=== PATIENT | female | born 1980 | race Two or more races ===

== ENCOUNTER → 2025-04-23 | Outpatient (CLI) | payer OTHER, SELFPAY ==
--- NOTE | 2025-04-23 09:15 | XR_ITS ---
Examination: Screening digital mammography, bilateral Computer aided detection 3-D breast Tomosynthesis, bilateral Date and time of exam: April 23, 2025 0844 hours Compared to mammograms dating to November 12, 2022 Indication: Screening Technique: Nonmagnified MLO, CC views of the breasts to been obtained, reconstructed from 3-D Tomosynthesis images. R2 computer aided detection program utilized for evaluation of suspicious masses and/or abnormal calcifications. 3-D Tomosynthesis images obtained. Findings: The breasts are heterogeneously dense, which may obscure small masses Interval 8 mm focus architectural distortion inner right breast CC view, 4.4 cm from the nipple Impression: BI-RADS Category 0: Incomplete: Need additional imaging evaluation Recommend follow-up spot tomographic views of 8 mm focus architectural distortion inner right breast CC view as well as spot compression right MLO view upper right breast and right breast sonography to complete the workup.
== END | disposition home or self-care (01) ==
LOC: CDIM 08:36
PROVIDERS: Referring Provider Nurse Practitioner Family; Visit Provider Nurse Practitioner Family
DX: Z12.31 Encounter for screening mammogram for malignant neoplasm of breast (principal); R92.8 Other abnormal and inconclusive findings on diagnostic imaging of breast
CPT/HCPCS: 77063; 77067

== ENCOUNTER → 2025-05-29 | Outpatient (CLI) | payer OTHER, SELFPAY ==
--- NOTE | 2025-05-29 09:00 | XR_ITS ---
Examination: Breast ultrasound complete, bilateral Date and time of exam: May 29, 2025 0914 hours Comparison February 03, 2024 INDICATIONS: Mammogram May 05, 2025 8mm architectural distortion inner right breast, strong family history breast cancer, sister Technique: Real-time grayscale ultrasonographic imaging bilateral breasts, including all 4 quadrants as well as nipple retroareolar and axillary regions. Findings: Sonographic images right breast 2:00 cyst 3 x 4 mm Retroareolar cyst 7 x 7 mm No solid nodules Sonographic images left breast No cystic or solid mass IMPRESSION: BI-RADS Category 2: Benign findings
--- NOTE | 2025-05-29 09:36 | XR_ITS ---
Examination: Diagnostic digital mammography, unilateral, right Computer aided detection 3-D breast Tomosynthesis, unilateral Date and time of exam: May 29, 2025 0939 hours INDICATIONS: Mammogram April 23, 2025 architectural distortion inner right breast CC view Technique: Nonmagnified MLO, CC views of the right breast have been obtained, reconstructed from 3-D Tomosynthesis images. R2 computer aided detection program utilized for evaluation of suspicious masses and/or abnormal calcifications. 3-D Tomosynthesis images obtained. Findings: The breast is heterogeneously dense, which may obscure small masses Small focus possible architectural distortion remains inner right breast on the spot compression view anterior depth Impression: BI-RADS category 3: Probably benign findings One additional 6 month right mammogram follow-up is needed to document stability of asymmetry described above
== END | disposition home or self-care (01) ==
PROVIDERS: PCP Nurse Practitioner Family; Referring Provider Nurse Practitioner Family; Visit Provider Nurse Practitioner Family
DX: R92.321 Mammographic fibroglandular density, right breast (principal); N64.89 Other specified disorders of breast
CPT/HCPCS: 76641; 77061; 77065; G0279